=== PATIENT | female | born 1980 | race Two or more races ===

== ENCOUNTER 2021-11-12 09:02 | Emergency (ER) | payer MEDICAID ==
[~2021-11-12] VITALS: Ht 160 cm; Wt 60.8 kg
[2021-11-12 10:24] VITALS: BP 100/61
[2021-11-12] MEDS ORDERED: ERY05OO OP (10:39)
== END 2021-11-12 10:42 | disposition home or self-care (01) ==
LOC: ER 09:02
DX: H01.003 Unspecified blepharitis right eye, unspecified eyelid (principal)